=== PATIENT | female | born 1960 | race Caucasian/White ===

== ENCOUNTER → 2017-01-25 | Outpatient (CLI) | payer BC ==
[2017-01-25 12:25] LABS: BASO % 0.4 %; BASO ABS # 0.04 K/uL (0-0.2); COMPLETE YES; EOS % 2.2 %; HEMATOCRIT 44.1 % (37-47); IG% 0.2 %; LYMPH % 32.8 %; LYMPH ABS # 3.01 K/uL (1.2-3.4); MEAN CELL VOLUME 91.5 fL (80-100); MEAN CORPUSCULAR HEMOGLOBIN 31.1 pg (25-34); MEAN PLATELET VOLUME 9.9 fL (7.4-10.4); MONO % 8.4 %; PLATELET COUNT 273 K/uL (130-400); RED BLOOD COUNT 4.82 M/uL (4.2-5.4); WHITE BLOOD COUNT 9.19 K/uL (4.8-10.8)
[2017-01-25 12:38] LABS: ALT/SGPT 40 U/L (12-78); AST/SGOT 20 U/L (15-37); BLOOD UREA NITROGEN 17 mg/dl (7-18); BUN/CREATININE RATIO 23.1 (10-20); CALCIUM 8.9 mg/dl (8.5-10.1); CARBON DIOXIDE 26 mmol/L (21-32); CHLORIDE 107 mmol/L (98-107); CREATININE 0.72 mg/dl (0.60-1.20); GLUCOSE 107 mg/dl (70-99); POTASSIUM 4.5 mmol/L (3.5-5.1); SODIUM 141 mmol/L (136-145)
[2017-01-25 12:46] LABS: ALB/GLOB RATIO 0.8 (0.9-2); ALKALINE PHOSPHATASE 80 U/L (45-117); CHOLESTEROL 157 mg/dl (0-200); CHOLESTEROL/HDL RATIO 2.3; HDL CHOLESTEROL 69 mg/dl; LDL CHOLESTEROL CALCULATED 72 mg/dl; THYROID STIMULATING HORMONE 0.334 uIu/ml (0.300-4.500); TRIGLYCERIDES 82 mg/dl (0-150); VERY LOW DENSITY LIPOPROT CALC 16 mg/dl
== END | disposition home or self-care (01) ==
LOC: C.LABBFT 08:55
PROVIDERS: ATTEND Nurse Practitioner
DX: Z11.59 Encounter for screening for other viral diseases (principal); E03.9 Hypothyroidism, unspecified; E78.5 Hyperlipidemia, unspecified; M79.89 Other specified soft tissue disorders

== ENCOUNTER → 2017-01-28 | Outpatient (CLI) | payer BC ==
--- NOTE | 2017-01-28 16:08 | DIAGNOSTIC IMAGING REPORT ---
ULTRASOUND OF THE THYROID GLAND CLINICAL HISTORY: Thyroid nodule. Soft tissue nodule. COMPARISON STUDY: Thyroid ultrasound dated 11/18/2012. TECHNIQUE: Real-time, grayscale, and color flow sonography of the thyroid gland is performed utilizing a high-frequency linear transducer. Images are reviewed in the transverse and longitudinal planes. FINDINGS: Right lobe: The right lobe of the thyroid gland is diminutive and markedly heterogeneous in echotexture, measuring 4.2 x 1.7 x 1.3 cm. The 4 mm right upper pole nodule identified on 2012 is no longer discretely seen. Left lobe: The left lobe of the thyroid gland is diminutive and markedly heterogeneous in echotexture, measuring 3.7 x 1.4 x 0.8 cm. A 0.5 cm hypoechoic nodule is suggested inferior to the left thyroid lobe. Isthmus: The thyroid isthmus is normal in appearance and measures 0.2 cm in AP diameter. Soft tissues: There are small benign-appearing cervical lymph nodes incidentally noted. These measure up to 6 mm in short axis. IMPRESSION: 1. The thyroid gland is diminutive and markedly heterogeneous in echotexture. The appearance suggests the sequelae of previous thyroiditis. 2. Small benign-appearing cervical lymph nodes are incidentally noted. These correspond to the foci of palpable concern. Clinical follow-up only is recommended. Electronically signed by: Farhan Elliott M.D. 01/28/2017 4:06 PM Dictated Date/Time: 01/28/2017 4:03 PM
== END | disposition home or self-care (01) ==
LOC: C.ULTR 14:39
PROVIDERS: ATTEND Nurse Practitioner
DX: M79.89 Other specified soft tissue disorders (principal)

== ENCOUNTER → 2017-01-30 | Outpatient (CLI) | payer BC ==
[2017-02-04 06:54] LABS: ALBUMIN 3.7 G/DL (3.8-4.8); CREATININE UR 116 MG/DL (20-320); GAMMA GLOBULIN 1.1 G/DL (0.8-1.7); TOTAL PROTEIN 6.8 G/DL (6.2-8.3)
== END | disposition home or self-care (01) ==
LOC: C.LABBFT 14:18
PROVIDERS: ATTEND Nurse Practitioner
DX: R77.1 Abnormality of globulin (principal)

== ENCOUNTER → 2018-02-08 | Outpatient (CLI) | payer BC ==
[~2018-02-08] MED LIST: LEVO50TA6 PO
[2018-02-08 11:03] LABS: ALBUMIN 3.4 gm/dl (3.4-5.0); ALT/SGPT 35 U/L (12-78); AST/SGOT 19 U/L (15-37); BLOOD UREA NITROGEN 20 mg/dl (7-18); CALCIUM 9.2 mg/dl (8.5-10.1); CARBON DIOXIDE 25 mmol/L (21-32); CREATININE 0.77 mg/dl (0.60-1.20); GLUCOSE 104 mg/dl (70-99); POTASSIUM 4.1 mmol/L (3.5-5.1); SODIUM 138 mmol/L (136-145)
[2018-02-08 11:14] LABS: ALKALINE PHOSPHATASE 83 U/L (45-117); CHOLESTEROL 153 mg/dl (0-200); LDL CHOLESTEROL CALCULATED 71 mg/dl; TOTAL PROTEIN 7.8 gm/dl (6.4-8.2)
== END | disposition home or self-care (01) ==
LOC: C.LAB1850 09:56
PROVIDERS: ATTEND Nurse Practitioner
DX: E03.9 Hypothyroidism, unspecified (principal); E78.5 Hyperlipidemia, unspecified

== ENCOUNTER 2018-02-10 09:19 | Emergency (ER) | payer BC, OTHER ==
[~2018-02-10] VITALS: Ht 157.5 cm; Wt 99.1 kg
[2018-02-10 09:24] VITALS: TEMP 36.4; Ht 157.5 cm; Wt 99.1 kg
[2018-02-10] MEDS ORDERED: ACETAMINOPHEN 500 MG TAB PO STA (09:42)
--- NOTE | 2018-02-10 10:03 | EMERGENCY ROOM VISIT NOTE ---
ED Visit Note First contact with patient: 09:29 CHIEF COMPLAINT: Head injury HISTORY OF PRESENT ILLNESS: This 58-year-old female patient presented to the emergency department, ambulatory, approximately 1 hour after receiving a head injury. The patient was at work when a chandelier fell approximately 6 feet onto the left side of the back of her head. She states she immediately applied ice after the injury which did help her discomfort. She denies any loss of consciousness, nausea, or vomiting. She states she did "see stars" immediately after the injury, but this lasted only a few seconds. The patient complains of head pain in the area of the injury, but otherwise feels normal. The patient denies balance disturbances different than normal, tinnitus, dizziness, visual disturbances, lightheadedness. The headache has been minimal. The patient complains of no neck pain. The patient has taken nothing for the pain. The patient rates the pain as 5/10 and sharp. The patient denies bowel or bladder dysfunction. The patient denies any other injuries. The patient is not on blood thinners and denies history of previous head injuries. REVIEW OF SYSTEMS: A 10 system review of systems was performed with positives and pertinent negatives listed in the history of present illness. All other systems were reviewed and are negative. ALLERGIES: None MEDICATIONS: None PMH: Left ear deafness SOCIAL HISTORY: The patient lives locally with family. She denies drug, alcohol , tobacco use. PHYSICAL EXAM: Vital Signs: Reviewed Nurse's notes, vital signs stable. GENERAL : This is a 58-year-old white female, in no acute distress, well-developed, well -nourished. NEURO: The patient is alert, oriented to person place and time, and coherent. Normal mini mental status exam. The patient does have some balance disturbances with Romberg testing, but she reports this is normal. Negative pronator drift. Cerebellar function intact. HEAD: Normocephalic. There is an area of tenderness on the left superior/posterior aspect of the head. There is no ecchymosis, obvious contusion, or edema noted. EYES: Pupils are equal round and reactive to light and accommodation. EOMs are full and optic discs and fundi are normal. There is no swelling or discoloration of the tissue surrounding the eyes. EARS: External auditory canals clear without blood. No battles' sign noted. NOSE: Patent without tenderness. No septal hematoma. FACE: No facial bone tenderness. NECK: Supple. There is no cervical spine tenderness. The patient does not have tenderness with movement of the neck. ED COURSE: I examined the patient. She was given 1 g p.o. Tylenol for her pain. She was monitored here in the emergency department for approximately 1 hour with no new symptoms noted. The patient is feeling well, her headache has improved, and based on her examination and symptoms, I do not feel that CT scan at this time is necessary. She was agreeable. I discussed appropriate follow- up with the patient at bedside. The patient was discharged home in good condition ambulatory. I attest that I have personally reviewed the patient's current medication list. Patient was found to have normal blood pressure on screening and does not require follow-up. Etiologies such as closed head injury, concussion, headache, sinusitis, CVA, ICH , SAH, infection, as well as others were entertained. DIAGNOSIS: Closed head injury The chart was completed utilizing [employer] voice recognition software. Grammatical errors, random word insertions, pronoun errors, and incomplete sentences are an occasional consequence of this system due to software limitations, ambient noise, and hardware issues. Any formal questions or concerns about the content, text, or information contained within the body of this dictation should be directly addressed to the provider for clarification. Current/Historical Medications Scheduled Levothyroxine Sodium (Levothyroxine Sodium), 1 TAB PO DAILY Allergies Coded Allergies: No Known Allergies (Unverified , 02/10/18) Vital Signs Date Time Temp Pulse Resp B/P (MAP) Pulse Ox O2 Delivery O2 Flow Rate FiO2 02/10/18 10:53 92 19 142/98 97 Room Air 02/10/18 09:24 36.4 108 20 152/85 98 Room Air Medications Administered Medications (Trade) Dose Ordered Sig/Bonifacio Route Start Time Stop Time Status Last Admin Dose Admin Acetaminophen (Tylenol Tab) 1,000 mg NOW STAT PO 02/10/18 09:42 02/10/18 09:43 DC 02/10/18 09:54 1,000 MG Departure Information Impression Primary Impression: Closed head injury Dispostion Home / Self-Care Condition GOOD Referrals No Doctor, Assigned (PCP) Patient Instructions ED Head Injury Closed, My [facility] Additional Instructions You have been treated in the Emergency Department for a Closed Head Injury. For pain control, you can use the following [id number] medicines (if >12 yo): Ibuprofen(Motrin, Advil) may be used for fever or pain. Use 400mg every six hours as needed. Take with food. Avoid using more than 2400mg in a 24 hour period. Do not use 2400mg per day for more than three consecutive days without physician direction. Prolonged inappropriate use can lead to stomach upset or ulcers. (AND/OR) Acetaminophen(Tylenol) may be used for fever or pain. Use 500mg every six hours as needed. Avoid using more than 3000mg in a 24 hour period. You may go back to work as tolerated. You should relax in a quiet, dark place for the rest of the day if bright lights and work are causing headache or other symptoms. Avoid any possible triggers including: cigarette smoke, caffeine, nicotine, chocolate, wine, beer, loud noises or music, or bright lights. You should schedule a follow-up appointment in 2-3 days with your Primary Care Provider or Worker's Compensation provider for further evaluation and treatment of your Headache. Return to the Emergency Department if your current symptoms worsen despite treatment course outlined above, or if you develop any of the following symptoms : intractable pain despite aforementioned treatment course, visual disturbances , loss of vision, unilateral weakness or facial drooping, slurring of speech, loss of coordination, or loss of consciousness. Problem Qualifiers Primary Impression: Closed head injury Encounter type: initial encounter Qualified Codes: S09.90XA - Unspecified injury of head, initial encounter
[2018-02-10] MEDS ORDERED: LEVO50TA6 PO (10:20)
[2018-02-10 10:53] VITALS: BP 142/98; PULSE 92; O2SAT 97
== END 2018-02-10 10:55 | disposition home or self-care (01) ==
LOC: C.EDB 09:20 → C.EDA 10:55
DX: S09.90XA Unspecified injury of head, initial encounter (principal); W20.8XXA Other cause of strike by thrown, projected or falling object, initial encounter; Y99.0 Civilian activity done for income or pay; H91.92 Unspecified hearing loss, left ear